=== PATIENT | male | born 2000 | race Caucasian/White ===

== ENCOUNTER 2024-04-19 23:32 | Emergency (ER) | payer BC ==
[~2024-04-19] VITALS: Ht 180.3 cm; Wt 64.9 kg
[2024-04-19 23:38] VITALS: BP_SYST 135; PULSE 85; RESP 18; TEMP 98.3; O2SAT 98
[2024-04-20] MEDS ORDERED: ESOM40CA PO (00:05)
[2024-04-20 00:12] VITALS: BP_SYST 135; PULSE 85; RESP 18; TEMP 98.3; O2SAT 98
== END 2024-04-20 00:11 | disposition home or self-care (01) ==
LOC: SED 23:32
DX: K21.9 Gastro-esophageal reflux disease without esophagitis (principal); J02.9 Acute pharyngitis, unspecified; R07.2 Precordial pain; Z79.899 Other long term (current) drug therapy
CPT/HCPCS: 93005; 99283